=== PATIENT | female | born 1990 | race Caucasian/White ===

== ENCOUNTER 2018-01-02 18:37 | Emergency (ER) | payer MEDICAID ==
--- NOTE | 2018-01-02 18:45 | EDPHY ---
H & P Stated Complaint: abdomin pain today Time Seen by Provider: 01/02/18 18:44 HPI/ROS: HPI: This is a 27-year-old female who presents with Chief Complaint: Abdominal pain, nausea, vomiting Location: GI Quality: Right upper quadrant pain, nausea, vomiting Duration: 2-4 hours prior to arrival Signs and Symptoms: no fever, + nausea, + vomiting, no hematemesis, no blood in stool, no abdominal bloating, no diarrhea, no back pain, no urinary symptoms, no vaginal bleeding/discharge, no indigestion, no chest pain, no shortness of breath Timing: Acute, intermittent episodes Severity: Moderate Context: Patient is on her menses day 5 presents with sudden onset approximately 2-4 hours ago of right upper quadrant pain that is nonradiating in nature accompanied by nausea and approximately 3-4 episodes of vomiting. She vomited her stomach contents. Pain is not worsened with inspiration. Denies diarrhea/fever/hematemesis/blood in her stool. She reports that her menses is typical for her and denies any pelvic pain. She is scheduled to leave on a flight at approximately 10:00 p.m. And she is requesting for us to have a speedy emergency room workup. Modifying Factors: None Comment: ROS: see HPI Constitutional: No fever, no chills, no weight loss Eyes: No blurred vision Respiratory: No shortness of breath, no cough Cardiovascular: No chest pain, no palpitations Gastrointestinal: + nausea, + vomiting, no diarrhea, no hematemesis, no blood in stool Genitourinary: No dysuria, no blood in urine Extremities: No myalgias, no edema Neurologic: No weakness, no numbness Skin: No rashes, no petechiae Hematologic: No bruising, no bleeding MEDICAL/SURGICAL/SOCIAL HISTORY: Medical history: Depression Surgical history: Denies Social history: Family history noncontributory. CONSTITUTIONAL: extremely anxious but well appearing, awake and alert, no obvious distress HEENT: Atraumatic and normocephalic, PERRL, EOMI. Tympanic membranes clear. Oropharynx clear, no exudate and moist pink mucosa. Airway patent. No lymphadenopathy. No meningismus. Cardiovascular: Normal S1/S2, tachycardia, regular rhythm, without murmur rub or gallop. PULMONARY/CHEST: Symmetrical and nontender. Clear to auscultation bilaterally. Good air movement. No accessory muscle usage. ABDOMEN: Soft, nondistended, + Longo sign; right upper quadrant moderate tender, no rebound, no guarding, no peritoneal signs, no masses or organomegaly. No CVAT. Hyperactive bowel sounds heard. EXTREMITIES: 2/2 pulses, strength 5/5, no deformities, no clubbing, no cyanosis or edema. NEUROLOGICAL: no focal neuro deficits. GCS 15. SKIN: Warm and dry, no erythema. no rash. Good capillary refill. Source: Patient Exam Limitations: No limitations - Personal History LMP (Females 10-55): Now Current Tetanus/Diphtheria Vaccine: Unsure Current Tetanus Diphtheria and Acellular Pertussis (TDAP): Unsure - Medical/Surgical History Hx Asthma: No Hx Chronic Respiratory Disease: No Hx Diabetes: No Hx Cardiac Disease: No Hx Renal Disease: No Hx Cirrhosis: No Hx Alcoholism: No Hx HIV/AIDS: No Hx Splenectomy or Spleen Trauma: No Other PMH: depression - Social History Smoking Status: Never smoked Constitutional: Initial Vital Signs Temperature (C) 37.1 C 01/02/18 18:40 Heart Rate 128 H 01/02/18 18:40 Respiratory Rate 18 01/02/18 18:40 Blood Pressure 140/104 H 01/02/18 18:40 O2 Sat (%) 96 01/02/18 18:40 O2 Delivery Mode Room Air Allergies/Adverse Reactions: No Known Allergies Allergy (Unverified 01/02/18 18:41) Home Medications: Medication Instructions Recorded Nitrofurantoin Macrobid [Macrobid] 100 mg PO BID #14 cap 01/02/18 Ondansetron Odt [Zofran Odt 4 mg 4 mg PO Q4 PRN #12 tab 01/02/18 (*)] Medical Decision Making - Diagnostics Imaging Results: Imaging Impressions Abdomen Ultrasound 01/02/18 18:50 Impression: 1. No acute findings. 2. Probable fatty infiltration of the liver. Findings discussed with Madison Hartley 01/02/2018 at 20:18. ED Course/Re-evaluation: Labs, IV fluids, urinalysis, right upper quadrant ultrasound, IV medications ordered Doubt surgical abdomen. Wells criteria low for PE. Urinalysis reviewed shows 3+ LE, WBC and 2+ blood; on menses; sent for urine culture; given Macrobid prepack 1950: Labs reviewed; no leukocytosis/anemia/electrolyte imbalance/acute kidney injury. No signs of sepsis/pyelonephritis/cholecystitis/choledocholithiasis 2019: Called by radiologist who advised that right upper quadrant ultrasound is grossly unremarkable. 2021: Reassessed patient. Abdomen soft and nontender. Patient reports that she has feels considerably better and wants to be discharged home. Passed p.o. Trial and vitals improved prior to discharge. This patient was seen under the supervision of my secondary supervising physician. I evaluated care for this patient independently. Discussed this patient with Dr. Guo who did not see the patient. Differential Diagnosis: Abdominal pain including but not limited to appendicitis, cholecystitis, gastritis and urinary tract infection. - Data Points Laboratory Results: Laboratory Results 01/02/18 19:01/02/18 19:01/02/18 01/02/18 01/02/18 19: 19: 19:00 WBC RBC Hgb Hct MCV MCH MCHC RDW Plt Count MPV Neut % (Auto) Lymph % (Auto) Wood[place] % (Auto) Eos % (Auto) Baso % (Auto) Nucleat RBC Rel Count Absolute Neuts (auto) Absolute Lymphs (auto) Absolute Monos (auto) Absolute Eos (auto) Absolute Basos (auto) Absolute Nucleated RBC Immature Gran % Immature Gran # Sodium 137 mEq/L mEq/L (135-145) Potassium 3.7 mEq/L mEq/L (3.5-5.2) Chloride 100 mEq/L mEq/L (97-110) Carbon Dioxide 24 mEq/l mEq/l (22-31) Anion Gap 13 mEq/L mEq/L (8-16) BUN 6 mg/dL L mg/dL (7-23) Creatinine 0.7 mg/dL mg/dL (0.6-1.0) Estimated GFR > 60 Glucose 87 mg/dL mg/dL (70-100) Calcium 9.7 mg/dL mg/dL (8.5-10.4) Lipase 129 IU/L IU/L (23-300) Beta HCG, Qual NEGATIVE Urine Color YELLOW Urine Appearance MODERATELY TURBID Urine pH 6.0 (5.0-7.5) Ur Specific [place] 1.006 (1.002-1.030) Urine Protein 1+ H (NEGATIVE) Urine Ketones NEGATIVE (NEGATIVE) Urine Blood 2+ H (NEGATIVE) Urine Nitrate NEGATIVE (NEGATIVE) Urine Bilirubin NEGATIVE (NEGATIVE) Urine Urobilinogen NEGATIVE EU EU (0.2-1.0) Ur Leukocyte Esterase 3+ H (NEGATIVE) Urine RBC 5-10 /hpf H /hpf (0-3) Urine WBC 50-182 /hpf H /hpf (0-3) Ur Epithelial Cells TRACE /lpf /lpf (NONE-1+) Urine Bacteria TRACE /hpf H /hpf (NONE SEEN) Urine Mucus TRACE /lpf /lpf (NONE-1+) Urine Glucose NEGATIVE (NEGATIVE) 01/02/18 19:00 WBC 7.72 10^3/uL 10^3/uL (3.80-9.50) RBC 4.44 10^6/uL 10^6/uL (4.18-5.33) Hgb 14.2 g/dL g/dL (12.6-16.3) Hct 40.2 % % (38.0-47.0) MCV 90.5 fL fL (81.5-99.8) MCH 32.0 pg pg (27.9-34.1) MCHC 35.3 g/dL g/dL (32.4-36.7) RDW 11.6 % % (11.5-15.2) Plt Count 280 10^3/uL 10^3/uL (150-400) MPV 9.6 fL fL (8.7-11.7) Neut % (Auto) 88.5 % H % (39.3-74.2) Lymph % (Auto) 8.8 % L % (15.0-45.0) Woodson % (Auto) 1.6 % L % (4.5-13.0) Eos % (Auto) 0.3 % L % (0.6-7.6) Baso % (Auto) 0.4 % % (0.3-1.7) Nucleat RBC Rel Count 0.0 % % (0.0-0.2) Absolute Neuts (auto) 6.84 10^3/uL H 10^3/uL (1.70-6.50) Absolute Lymphs (auto) 0.68 10^3/uL L 10^3/uL (1.00-3.00) Absolute Monos (auto) 0.12 10^3/uL L 10^3/uL (0.30-0.80) Absolute Eos (auto) 0.02 10^3/uL L 10^3/uL (0.03-0.40) Absolute Basos (auto) 0.03 10^3/uL 10^3/uL (0.02-0.10) Absolute Nucleated RBC 0.00 10^3/uL 10^3/uL (0-0.01) Immature Gran % 0.4 % % (0.0-1.1) Immature Gran # 0.03 10^3/uL 10^3/uL (0.00-0.10) Sodium Potassium Chloride Carbon Dioxide Anion Gap BUN Creatinine Estimated GFR Glucose Calcium Lipase Beta HCG, Qual Urine Color Urine Appearance Urine pH Ur Specific [place] Urine Protein Urine Ketones Urine Blood Urine Nitrate Urine Bilirubin Urine Urobilinogen Ur Leukocyte Esterase Urine RBC Urine WBC Ur Epithelial Cells Urine Bacteria Urine Mucus Urine Glucose Medications Given: Discontinued Medications Sodium Chloride (Ns) 1,000 mls @ 0 mls/hr IV EDNOW ONE; Wide Open PRN Reason: Protocol Stop: 01/02/18 18:51 Last Admin: 01/02/18 19:01 Dose: 1,000 mls Ketorolac Tromethamine (Toradol) 30 mg IVP EDNOW ONE Stop: 01/02/18 18:51 Last Admin: 01/02/18 19:03 Dose: 30 mg Nitrofurantoin (Macrobid 100mg Prepack#2) 1 btl TAKEHOME EDNOW ONE PRN Reason: Protocol Stop: 01/02/18 19:43 Last Admin: 01/02/18 20:03 Dose: 1 btl Ondansetron HCl (Zofran) 4 mg IVP EDNOW ONE Stop: 01/02/18 18:51 Last Admin: 01/02/18 19:03 Dose: 4 mg Departure - Departure Disposition: Home, Routine, Self-Care Clinical Impression: Lower urinary tract infection Condition: Good Instructions: Urinary Tract Infection in Women (ED) Additional Instructions: Consume a minimum of 8-10 glasses of water or electrolyte fluid replacement drinks that include Gatorade, Powerade, Pedialyte. Eat a bland diet for the next 48 hours and then slowly advance as tolerated. Take Zofran 1 tab every 4 hours as needed for nausea, vomiting. Take Macrobid x 7 days for urinary tract infection Please observe pelvic rest until all symptoms have resolved. Return to the Emergency Room if symptoms do not resolve in the next 48-72 hours , you spike a fever > 102 F, or experience intractable abdominal pain/nausea/ vomiting. Referrals: [facility],. [Clinic] - 5-7 days, if not improved Prescriptions: Nitrofurantoin Macrobid [Macrobid] 100 mg PO BID #14 cap Ondansetron Odt [Zofran Odt 4 mg (*)] 4 mg PO Q4 PRN #12 tab PRN Reason: Nausea/Vomiting, Use 1st
[2018-01-02] MEDS ORDERED: KETOROLAC 30 MG/1 ML SDV IVP ONE (18:50)
[2018-01-02] MEDS ORDERED: ONDANSETRON 4 MG/2 ML VIAL IVP ONE (18:50)
[2018-01-02] MEDS ORDERED: NS 1,000 ML IV ONE (18:50)
[2018-01-02 19:21] LABS: PLATELET COUNT 280 10^3/uL (150-400)
[2018-01-02] MEDS ORDERED: NITROFURANTOIN 100MG PREPACK#2 BTL TAKEHOME ONE (19:42)
[2018-01-02 20:41] VITALS: BP 113/74
== END 2018-01-02 20:38 | disposition home or self-care (01) ==
LOC: EDBD 18:37
DX: N39.0 Urinary tract infection, site not specified (principal); B96.20 Unspecified Escherichia coli [E. coli] as the cause of diseases classified elsewhere; E86.9 Volume depletion, unspecified
CPT/HCPCS: 96374; J1885; J2405